=== PATIENT | female | born 1995 | race Caucasian/White ===

== ENCOUNTER 2019-05-17 17:52 | Emergency (ER) | payer SELFPAY ==
[2019-05-17 18:03] VITALS: BP 131/81; PULSE 80; RESP 18; TEMP 98.5
[2019-05-17] MEDS ORDERED: TOPICAL SKIN ADHESIVE 1 EACH AMP TOPICAL ONE (18:26)
--- NOTE | 2019-05-17 19:06 | ED ---
Wound/Laceration HPI - General Chief Complaint: Wound/Laceration Stated Complaint: left thumb laceration Time Seen by Provider: 05/17/19 18:03 Source: patient Mode of arrival: ambulatory Limitations: no limitations - History of Present Illness Initial Comments: Patient is a 24-year-old female presenting to emergency Department with complaints of a laceration to her left thumb that happened prior to arrival. Patient states she was taking it Off of a brand-new scalpel when it slipped and hit the dorsal aspect of her left thumb just proximal to her nail. Bleeding is controlled at this time. Patient's tetanus vaccine is up-to-date. Patient has no other complaints at this time. Upon arrival vital signs are stable. - Related Data Allergies Allergy/AdvReac Type Severity Reaction Status Date / Time No Known Allergies Allergy Verified 05/17/19 18:03 Review of Systems ROS Statement: Those systems with pertinent positive or pertinent negative responses have been documented in the HPI. ROS Other: All systems not noted in ROS Statement are negative. Past Medical History Past Medical History: No Reported History History of Any Multi-Drug Resistant Organisms: None Reported Past Surgical History: No Surgical Hx Reported Past Psychological History: No Psychological Hx Reported Smoking Status: Never smoker Past Alcohol Use History: None Reported Past Drug Use History: None Reported General Exam - General Exam Comments Initial Comments: GENERAL: Well-appearing, well-nourished and in no acute distress. HEAD: Atraumatic, normocephalic. EYES: Pupils equal round and reactive to light, extraocular movements intact, sclera anicteric, conjunctiva are normal. ENT: TMs normal, nares patent, oropharynx clear without exudates. Moist mucous membranes. NECK: Normal range of motion, supple without lymphadenopathy or JVD. LUNGS: Breath sounds clear to auscultation bilaterally and equal. No wheezes rales or rhonchi. HEART: Regular rate and rhythm without murmurs, rubs or gallops. ABDOMEN: Soft, nontender, normoactive bowel sounds. No guarding, no rebound. No masses appreciated. : Deferred EXTREMITIES: Normal range of motion, no pitting or edema. No clubbing or cyanosis. NEUROLOGICAL: Cranial nerves II through XII grossly intact. Normal speech, normal gait. PSYCH: Normal mood, normal affect. SKIN: Warm, Dry, normal turgor, no rashes. Patient has a 1 cm superficial laceration to the dorsal aspect of the left thumb just proximal to the nail. Bleeding is controlled at this time. Limitations: no limitations Course Vital Signs 05/17/19 18:00 Temperature 98.5 F Pulse Rate 80 Respiratory 18 Rate Blood Pressure 131/81 O2 Sat by Pulse 98 Oximetry Procedures - Laceration Laceration #1 Consent Obtained: verbal consent Indication: laceration Site: other (Left thumb, dorsal aspect, just proximal to the nail.) Size (cm): 1 Description: linear Depth: simple, single layer Pre-repair: irrigated extensively Patient Tolerated Procedure: well Additional Comments: Topical Exofin skin glue was used to close the wound. Medical Decision Making - Medical Decision Making Patient is a 24-year-old female presenting with a superficial 1 cm laceration to the left thumb, dorsal aspect. There is no nail involvement. Bleeding is controlled this time. Tetanus vaccine is up-to-date. Wound was soaked and then wound was closed with exofin skin glue. She tolerated procedure well. Return parameters were discussed with the patient she verbalized understanding. Patient is stable for discharge at this time. Case discussed with Dr. Blanca. Disposition Clinical Impression: Laceration of left thumb Disposition: HOME SELF-CARE Condition: Stable Instructions (If sedation given, give patient instructions): Laceration (ED), Skin Adhesive Care (ED) Additional Instructions: Please return to the Emergency Department if symptoms worsen or any other concerns. Is patient prescribed a controlled substance at d/c from ED?: No Referrals: None,Stated [Primary Care Provider] - 1-2 days
== END 2019-05-17 19:21 | disposition home or self-care (01) ==
LOC: EC 17:52 → MERGE 17:52 → EC 19:21
DX: S61.012A Laceration without foreign body of left thumb without damage to nail, initial encounter (principal); W22.8XXA Striking against or struck by other objects, initial encounter; W26.8XXA Contact with other sharp object(s), not elsewhere classified, initial encounter; Y93.89 Activity, other specified; Y92.009 Unspecified place in unspecified non-institutional (private) residence as the place of occurrence of the external cause
CPT/HCPCS: 12001; 99282